=== PATIENT | male | born 1960 | race Caucasian/White ===

== ENCOUNTER 2016-11-11 17:37 | Emergency (ER) | payer OTHER ==
[2016-11-11 17:57] VITALS: BP 113/82
--- NOTE | 2016-11-11 23:18 | UC ---
[place] Michael, scribed for Kay Hong MD on 11/11/16 at 1844 . Minor Trauma HPI - HPI Summary HPI Summary: 55 y/o male comes to Urgent Care after a fall a 12 foot ladder today at 1600. The pt reports he was spraying bleach on a patch of mold in the bathroom when he felt lightheaded and fell of the ladder. He states hitting his head two times. The pt does not remember falling off the ladder and recalls laying on the floor in pain. The pain is worse at the medial clavicle, and it radiates to his left shoulder, neck, head, sternum, and LUE. He also describes the head pain as his head spinning. The pt denies that the pain is aggravated with deep breaths and denies abd pain. - History of Current Complaint Chief Complaint: UCTrauma Stated Complaint: HEAD & SHOULDER INJURIES FROM FALL Time Seen by Provider: 11/11/16 18:09 Hx Obtained From: Patient, Medical Records Onset/Duration: Sudden Onset, Lasting Hours, Still Present Onset Of Pain: Immediate Severity Initially: Moderate Severity Currently: Moderate Pain Intensity: 8 Pain Scale Used: 0-10 Numeric Mechanism Of Injury: Fall From Height Of: - 12 ft Aggravating Factor(s): Nothing Alleviating Factor(s): Nothing Associated Signs And Symptoms: Positive: Loss Of Consciousness, Other: - left shoulder, neck, head, sternum, medial clavicle, and LUE pain. - Allergies/Home Medications Allergies/Adverse Reactions: Allergies Allergy/AdvReac Type Severity Reaction Status Date / Time No Known Allergies Allergy Verified 11/11/16 17:57 PMH/Surg Hx/FS Hx/Imm Hx - Additional Past Medical History Additional PMH: Hx broken clavicle several years ago Previously Healthy: Yes - pt denies significant PMHx - Surgical History Surgical History: Yes Surgery Procedure, Year, and Place: Bilateral ankle loose body removal surgeries , HERNIA REPAIR 2011 - Family History Known Family History: Negative: Blood Disorder - Social History Occupation: Retired Lives: With Family Alcohol Use: None Substance Use Type: None Smoking Status (MU): Never Smoked Tobacco Review of Systems Constitutional: Negative Skin: Negative Eyes: Negative ENT: Negative Respiratory: Negative Cardiovascular: Negative Gastrointestinal: Negative Genitourinary: Negative Motor: Negative Neurovascular: Negative Musculoskeletal: Other: - left shoulder, neck, head, sternum, clavicle, and LUE pain Neurological: Negative Psychological: Negative All Other Systems Reviewed And Are Negative: Yes Physical Exam Triage Information Reviewed: Yes Appearance: Well-Nourished, Other: - pain with movement and examination Vital Signs: Initial Vital Signs Temp 97.9 F 11/11/16 17:45 Pulse 89 11/11/16 17:45 Resp 18 11/11/16 17:45 BP 113/82 11/11/16 17:45 Pulse Ox 98 11/11/16 17:45 Vital Signs Reviewed: Yes Eye Exam: Normal ENT: Positive: Pharynx normal, TM dull, Other: - c/o headache, better now. Neck exam: Other Neck: Positive: Other: - tender left lateral neck, radiating up from left shoulder Respiratory Exam: Other - tender and bruising mid and left chest wall. Equal chest wall insp with deep breath. No crepitus. Trachea midline. Respiratory: Positive: Lungs clear, Normal breath sounds, No respiratory distress, No accessory muscle use Cardiovascular Exam: Normal Cardiovascular: Positive: RRR, No Murmur, Pulses Normal - equal, Brisk Capillary Refill Abdominal Exam: Normal Abdomen Description: Positive: No Organomegaly, Soft, Other: - "my left side hurts" No direct abd tender, but some left flank and chest wall pain Musculoskeletal Exam: Other - Tender L middle clavicle and upper left shoulder. + ax n sens (Bilat) LT. Straightens elbow. R/U 2+, good hand grasp. Distal NVI. No hip or pelvis tender. Able to walk around ok, slowly (pacing) Neurological Exam: Normal - CN-1-12 grossly intact. Distal NVI Partial recollection of event. O x ppt. Psychological Exam: Normal Skin Exam: Normal - except eccymosis scattered Minor Trauma Course/Dx - Course Course Of Treatment: Multiple pain c/o, part left side, s/p significant fall off ladder this afternoon. Transfer to the ED for further evaluation and management. Trauma may be indicated, but pt agrees to local ED. Indeed, while offered and encouraged EMS, he politely but firmly declines. AMA signed, he will go to ED pov. Declines neck collar or sling. Discussed patient care and transfer with Dr. Vega at 1900. The patient is refusing an ambulance and was made aware of potention risks in driving to the ED. - Differential Dx/Diagnosis Provider Diagnoses: Trauma s/p fall off ladder Discharge - Discharge Plan Condition: Stable Disposition: AGAINST MEDICAL ADVICE Referrals: Liz Bui MD [Primary Care Provider] - The documentation as recorded by the Dorothea contreras Michael accurately reflects the service I personally performed and the decisions made by me, Kay Hong MD.
== END 2016-11-11 19:07 | disposition left against medical advice (07) ==
LOC: UCEAST 17:37
DX: M54.2 Cervicalgia (principal); M25.512 Pain in left shoulder
CPT/HCPCS: 99212; G0463

== ENCOUNTER → 2016-11-11 19:25 | Emergency (ER) | payer OTHER ==
[~2016-11-11 19:25] MED LIST: Iohexol 300* (CONTRAST) 10 ML SDV IV ONE; NS 0.9% 1000 ML* 1,000 ML IV ONE
[2016-11-11 20:10] LABS: Hematocrit 47 % (42-52); Hemoglobin 15.6 g/dl (14.0-18.0); Mean Corpuscular HGB Conc 33 g/dl (31-36); Mean Corpuscular Hemoglobin 31 pg (27-31); Mean Corpuscular Volume 93 fL (80-94); Mean Platelet Volume 8 um3 (7.4-10.4); Red Blood Count 5.11 10^6/ul (4.0-5.4); Red Cell Distribution Width 13 % (10.5-15); White Blood Count 12.5 10^3/ul (3.5-10.8)
[2016-11-11 20:25] LABS: Albumin 4.7 g/dL (3.2-5.2); BUN/Creatinine Ratio 13.9 (8-20); Calcium 9.9 mg/dL (8.6-10.3); EGFR African American 84.9 (>60); Globulin 3.8 g/dL (2-4); Total Bilirubin 0.5 mg/dL (0.2-1.0); Total Protein 8.5 g/dL (6.4-8.9)
--- NOTE | 2016-11-11 20:54 | RAD ---
HISTORY: Head trauma COMPARISONS: None TECHNIQUE: Multiple contiguous axial CT scans were obtained of the head without intravenous contrast. FINDINGS: The study is limited by patient motion artifact. HEMORRHAGE/INFARCT: There is no hemorrhage or acute infarct. MASSES/SHIFT: There is no mass or shift. EXTRA-AXIAL SPACES: There are no extra-axial fluid collections. SULCI AND VENTRICLES: The sulci and ventricles are normal in size and position for the patient's stated age. CEREBRUM: There are no focal parenchymal abnormalities. BRAINSTEM: There are no focal parenchymal abnormalities. CEREBELLUM: There are no focal parenchymal abnormalities. VESSELS: The vessels are grossly normal. PARANASAL SINUSES: The paranasal sinuses are clear. ORBITS: The orbits are unremarkable. BONES AND SOFT TISSUE: No bone or soft tissue abnormalities are noted. OTHER: None IMPRESSION: NO ACUTE INTRACRANIAL PATHOLOGY.
--- NOTE | 2016-11-11 20:59 | RAD ---
HISTORY: Trauma, fall, head injury COMPARISONS: None TECHNIQUE: Multiple contiguous axial CT scans were obtained of the cervical spine without intravenous contrast, with coronal and sagittal multiplanar reformations. FINDINGS: BRAIN: The visualized brain is unremarkable CENTRAL CANAL: Evaluation of the central canal is limited on CT technique, however there is no obvious canalicular mass or epidural hemorrhage. ALIGNMENT: There is straightening of the normal cervical lordosis. VERTEBRAL BODIES: There is no displaced fracture. There is mild multilevel anterolateral marginal osteophyte formation. There is partial ossification of the tectorial membrane. JOINTS: There is osteoarthritis of the atlantoaxial articulation. There is mild uncovertebral and facet hypertrophic change MUSCULATURE: Unremarkable INTERVERTEBRAL DISCS: There is diffuse loss of intervertebral disc height. AXIAL IMAGES: There is a broad-based disc osteophyte complex at C5-C6. There is no significant osseous neural foraminal narrowing or central canal stenosis. SOFT TISSUES: The visualized soft tissues of the neck are unremarkable. The prevertebral fat stripe is preserved. OTHER: None. IMPRESSION: 1. DEGENERATIVE DISC DISEASE AND OSTEOARTHRITIS. 2. NO ACUTE OSSEOUS INJURY TO THE CERVICAL SPINE
--- NOTE | 2016-11-11 21:05 | RAD ---
HISTORY: Trauma, fall, head injury, left shoulder injury COMPARISONS: CT of the chest dated August 07, 2009 TECHNIQUE: Multiple contiguous axial CT scans were obtained of the chest, abdomen, and pelvis after the administration of intravenous contrast. Coronal and sagittal multiplanar reformations are submitted for review.. Oral contrast was not administered. Delayed images were obtained through the abdomen and pelvis. FINDINGS: CHEST NECK AND THYROID: The lower neck and thyroid are unremarkable. CHEST WALL: There is no lower cervical, axillary, or supraclavicular lymphadenopathy by size criteria. HEART AND PERICARDIUM: The heart is unremarkable. AORTA AND PULMONARY VASCULATURE: The aorta and pulmonary vasculature are normal. MEDIASTINUM: There is no mediastinal lymphadenopathy by size criteria. RUDY: There is no hilar lymphadenopathy by size criteria. AIRWAY AND ESOPHAGUS: The airway is unremarkable, without endobronchial filling defect. The esophagus is grossly normal. LUNG PARENCHYMA: The lungs are clear. PLEURA: No pleural abnormalities are noted. BONES AND SOFT TISSUES: There is remote posttraumatic change to the left clavicle. Mild degenerative changes are noted ABDOMEN/PELVIS: LIVER: The liver is diffusely low in attenuation compared to the spleen. There are no focal hepatic parenchymal masses. BILE DUCTS: There is no intrahepatic or extrahepatic biliary dilatation. GALLBLADDER: The gallbladder is normal, without pericholecystic inflammatory change. PANCREAS: The pancreas is normal, without mass or ductal dilatation. SPLEEN: Normal in size and appearance. UPPER GI TRACT: Evaluation of the gastrointestinal tract is limited by incomplete gastric distention. The upper GI tract is unremarkable. SMALL BOWEL \T\ MESENTERY: The small bowel is normal in contour, course, and caliber. There is no obstruction or dilatation. COLON: The colon is normal in contour, course, caliber. There is no pericolonic inflammatory change. There is a tubular, vermiform, hollow viscus that is blind ending, and originates from the cecum, consistent with a normal appendix. There is no periappendiceal inflammatory change. This is best seen on axial images 57 through 60 ADRENALS: Normal bilaterally. KIDNEYS: The kidneys are normal in shape, size, contour, and axis. There is no hydronephrosis or nephrolithiasis. BLADDER: The bladder is smooth in contour. PELVIC ORGANS: The prostate is diffusely enlarged. The seminal vesicles are symmetric. AORTA: The aorta is normal. IVC: Unremarkable LYMPH NODES: There is no lymphadenopathy by size criteria. ABDOMINAL WALL: There is no evidence for abdominal wall hernia. BONES: Mild degenerative changes are noted OTHER: There is no active arterial extravasation IMPRESSION: 1. NO ACUTE PATHOLOGY OF THE CHEST. 2. FATTY INFILTRATION OF LIVER. 3. ENLARGED PROSTATE. 4. NO ACUTE PATHOLOGY OF THE VISUALIZED ABDOMEN OR PELVIS
[2016-11-11 21:34] VITALS: BP 111/70
--- NOTE | 2016-11-11 22:04 | RAD ---
HISTORY: Left shoulder pain, trauma COMPARISONS: CT dated November 11, 2016 VIEWS: 4, Frontal internal rotation, external rotation, outlet, and axillary views of the left shoulder FINDINGS: BONE DENSITY: Normal. BONES: There is remote posttraumatic deformity to the left clavicle. There is no acute displaced fracture. JOINTS: There is no arthropathy. ALIGNMENT: There is no dislocation. SOFT TISSUES: Unremarkable. OTHER FINDINGS: None. IMPRESSION: EVIDENCE OF REMOTE LEFT CLAVICLE TRAUMA. NO ACUTE OSSEOUS INJURY. IF SYMPTOMS PERSIST, RECOMMEND REPEAT IMAGING.
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
== END | disposition home or self-care (01) ==
LOC: ED 19:25
DX: M25.512 Pain in left shoulder (principal); S16.1XXA Strain of muscle, fascia and tendon at neck level, initial encounter; W11.XXXA Fall on and from ladder, initial encounter; Y93.9 Activity, unspecified; Y92.9 Unspecified place or not applicable; M47.812 Spondylosis without myelopathy or radiculopathy, cervical region; M50.30 Other cervical disc degeneration, unspecified cervical region; N40.0 Benign prostatic hyperplasia without lower urinary tract symptoms; F32.9 Major depressive disorder, single episode, unspecified; Z87.81 Personal history of (healed) traumatic fracture
CPT/HCPCS: 36415; 70450; 71260; 72125; 74177; 80053; 83605; 84484; 85025; 85610; 96374; 99282; Q9967

== ENCOUNTER 2019-10-15 15:18 | Emergency (ER) | payer OTHER ==
[2019-10-15 15:42] VITALS: BP 110/65
[2019-10-15] MEDS ORDERED: Lidocaine 1% MPF ** 5 ML VIAL INJ ONE (15:48)
[2019-10-15] MEDS ORDERED: Tetan/Diph/Pertus SYR(Tdap)* 0.5 ML SYR(BOOSTRIX) use SYR contains LATEX IM ONE (16:10)
--- NOTE | 2019-10-15 16:12 | UC ---
Laceration HPI - HPI Summary HPI Summary: 58-year-old male presents with laceration of the left knee. States just prior to arrival he was cutting brush with a chainsaw when the saw kicked back and struck him in the left anterior knee. He was not wearing leather chaps sustained the laceration through his jeans. Bleeding was controlled with direct pressure prior to arrival. Last tetanus unknown. Denies joint pain, swelling, or decreased ROM. - History Of Current Complaint Chief Complaint: UCLaceration Stated Complaint: KNEE LAC Time Seen by Provider: 10/15/19 15:22 Hx Obtained From: Patient Pain Intensity: 6 - Allergies/Home Medications Allergies/Adverse Reactions: Allergies Allergy/AdvReac Type Severity Reaction Status Date / Time No Known Allergies Allergy Verified 10/15/19 15:42 Home Medications: Home Medications Albuterol Sulfate [Albuterol Sulfate Hfa] 2 puff INH Q4H PRN 10/15/19 [History Confirmed 10/15/19] PMH/Surg Hx/FS Hx/Imm Hx Respiratory History: Asthma - Surgical History Surgical History: Yes Surgery Procedure, Year, and Place: Bilateral ankle loose body removal surgeries , HERNIA REPAIR 2011 - Family History Known Family History: Positive: Hypertension Negative: Cardiac Disease, Diabetes - Social History Occupation: Retired Lives: Alone Alcohol Use: None Substance Use Type: None Smoking Status (MU): Never Smoked Tobacco Review of Systems All Other Systems Reviewed And Are Negative: Yes Constitutional: Positive: Negative Skin: Positive: Other - See HPI Respiratory: Positive: Negative Cardiovascular: Positive: Negative Gastrointestinal: Positive: Negative Genitourinary: Positive: Negative Musculoskeletal: Negative: Arthralgia, Decreased ROM Neurological/Mental Status: Positive: Negative Is Patient Immunocompromised?: No Physical Exam - Summary Physical Exam Summary: GENERAL APPEARANCE: Alert and cooperative obese adult male who appears to be in no acute distress. CARDIAC: Normal S1 and S2. No S3, S4 or murmurs. Rhythm is regular. There is no peripheral edema, cyanosis or pallor. Extremities are warm and well perfused. Capillary refill is less than 2 seconds. Peripheral pulses intact. LUNGS: Clear to auscultation without rales, rhonchi, wheezing or diminished breath sounds. ABDOMEN: Positive bowel sounds. Soft, nondistended, nontender. No guarding or rebound. No masses or hepatosplenomegally. MUSKULOSKELETAL: ROM intact to all extremities. No joint erythema or tenderness. Normal muscular development. Normal gait. EXTREMITIES: Superficial linear laceration approximately 1 cm in length with intact flap of skin to the anterior left knee. There are 2 small linear abrasions medial to the laceration. Bleeding controlled. SKIN: Skin normal color, texture and turgor. Triage Information Reviewed: Yes Vital Signs: Initial Vital Signs Temp 98.8 F 10/15/19 15: Pulse 89 10/15/19 15: Resp 20 10/15/19 15:22 BP 110/65 10/15/19 15:22 Pulse Ox 96 10/15/19 15:22 Vital Signs Reviewed: Yes Procedures - Procedure Summary Procedure Summary: Procedure note: Laceration repair left knee Informed consent was obtained before procedure started and the appropriate timeout was taken. The wound was copiously irrigated prior to wound closure by the RN. The area was prepped with Betadine. Local anesthesia was achieved using 1 ml of lidocaine 1% without epinephrine. A small linear flap of skin was sharply excised to all the wound margins to be brought into good alignment. 3 interrupted sutures were placed using 4-0 Ethilon. Total length of wound after repair was 1.2 cm. Estimated blood loss was Minimal. A dressing was applied to the area by the RM. Anticipatory guidance, as well as standard post-procedure care was discussed with patient. Return precautions are given. The patient tolerated the procedure well without complications. Patient is to follow up in 14 days for suture removal and evaluation of the laceration. Laceration Course/Dx - Course/Dx Course Of Treatment: 58-year-old male presents with laceration of the left knee. States just prior to arrival he was cutting brush with a chainsaw when the saw kicked back and struck him in the left anterior knee. He was not wearing leather chaps sustained the laceration through his jeans. Bleeding was controlled with direct pressure prior to arrival. Last tetanus unknown. Denies joint pain, swelling, or decreased ROM. Afebrile. Vital signs stable. Patient had a superficial linear laceration approximately 1 cm in length with intact flap of skin to the anterior left knee with 2 small linear abrasions medial to the laceration and bleeding controlled. There was no joint space violation. The wound was copiously irrigated by the RN prior to wound repair. The laceration was closed with 3 interrupted sutures using 4-0 Ethilon. Patient's tetanus was updated. He is to follow-up here or with his primary care provider in 14 days to have the sutures removed. Anticipatory guidance, wound care, and warning symptoms are reviewed with patient. Verbalizes understanding and agrees with plan of care. - Differential Dx - Laceration/Wound Differental Diagnoses: Joint Space Violation, Laceration - Diagnosis Provider Diagnosis: Laceration of left knee Discharge ED - Sign-Out/Discharge Documenting (check all that apply): Patient Departure All imaging exams completed and their final reports reviewed: No Studies - Discharge Plan Condition: Stable Disposition: HOME Patient Education Materials: Care For Your Stitches (ED), Laceration (ED) Referrals: Liz Bui MD [Primary Care Provider] - Additional Instructions: Leave the dressing that was applied in the clinic in place until tomorrow. Be sure to keep it clean and dry. Starting tomorrow, you may remove the dressing and shower as normal. Do not submerge the knee under water to prevent infection. Clean the wound with a mild soap and water at least once a day. Apply some antibiotic ointment and cover with a bandage. This should be changed at least once a day or any time the dressing becomes wet or soiled. Use acetaminophen (Tylenol) or ibuprofen (Advil, Motrin) according to directions as needed for pain. Sutures will need to be removed in 14 days. You may return here or with your primary care provider to have this done. Your tetanus was updated today. Be sure to notify your primary care provider so they can update their records. Watch for signs of infection including fever greater than 100.5 F, severe pain not managed with pain medication, redness that spreads, swelling of the hand/ fingers, or pus draining from the wound. Seek immediate medical attention should any of these occur. - Billing Disposition and Condition Condition: STABLE Disposition: Home - Attestation Statements Provider Attestation: This patient was not seen by me. I was available for consult. Chart reviewed. RANJIT
== END 2019-10-15 16:43 | disposition home or self-care (01) ==
LOC: UCEAST 15:18
DX: S81.012A Laceration without foreign body, left knee, initial encounter (principal); W29.3XXA Contact with powered garden and outdoor hand tools and machinery, initial encounter; Y93.89 Activity, other specified; Y92.9 Unspecified place or not applicable; Z23 Encounter for immunization; J45.909 Unspecified asthma, uncomplicated
CPT/HCPCS: 12001; 90715; 96372; 99211; G0463

== ENCOUNTER 2019-10-29 15:16 | Emergency (ER) | payer OTHER ==
--- NOTE | 2019-10-29 15:39 | UC ---
UC General HPI - HPI Summary HPI Summary: 58-year-old male comes in to have sutures removed. On October 15, 2019 he cut his left knee with a chain saw and sustained a 1 cm laceration that was sutured here in clinic with a total number of 3 sutures. Patient's been healing well no signs of infection no loss of range of motion or decreased sensation or strength. - History of Current Complaint Stated Complaint: SUTURE REMOVAL Time Seen by Provider: 10/29/19 15:37 - Allergy/Home Medications Allergies/Adverse Reactions: Allergies Allergy/AdvReac Type Severity Reaction Status Date / Time No Known Allergies Allergy Verified 10/29/19 15:41 Home Medications: Home Medications Albuterol Sulfate [Albuterol Sulfate Hfa] 2 puff INH Q4H PRN 10/15/19 [History Confirmed 10/29/19] Multivitamin [Multivitamins] 1 tab PO DAILY 10/29/19 [History Confirmed 10/29/19 ] PMH/Surg Hx/FS Hx/Imm Hx Previously Healthy: Yes Respiratory History: Asthma - Surgical History Surgical History: Yes Surgery Procedure, Year, and Place: Bilateral ankle loose body removal surgeries , HERNIA REPAIR 2011 - Family History Known Family History: Positive: Hypertension Negative: Cardiac Disease, Diabetes - Social History Alcohol Use: None Substance Use Type: None Smoking Status (MU): Never Smoked Tobacco Review of Systems All Other Systems Reviewed And Are Negative: Yes Constitutional: Positive: Negative Skin: Positive: Other - SEE HPI Eyes: Positive: Negative ENT: Positive: Negative Respiratory: Positive: Negative Motor: Positive: Negative Neurovascular: Positive: Negative Musculoskeletal: Positive: Negative Neurological/Mental Status: Positive: Negative Psychological: Positive: Negative Is Patient Immunocompromised?: No Physical Exam Triage Information Reviewed: Yes Appearance: Well-Appearing, No Pain Distress, Well-Nourished Vital Signs Reviewed: Yes Eye Exam: Normal Eyes: Positive: Conjunctiva Clear Neck: Positive: Supple Respiratory: Positive: No respiratory distress Musculoskeletal: Positive: Strength Intact, ROM Intact Psychological: Positive: Age Appropriate Behavior Skin: Positive: Other - Healing 1 cm laceration over the patella the left knee with a scab and 3 interrupted sutures. I removed the 3 interrupted sutures. Course/Dx - Diagnoses Provider Diagnosis: Encounter for removal of sutures Discharge ED - Sign-Out/Discharge Documenting (check all that apply): Patient Departure All imaging exams completed and their final reports reviewed: No Studies - Discharge Plan Condition: Stable Disposition: HOME Patient Education Materials: Stitches Removal (ED) Referrals: Liz Bui MD [Primary Care Provider] - Additional Instructions: FOLLOW UP WITH YOUR DOCTOR IF NOT COMPLETELY IMPROVED. GET REEVALUATED IF NOT IMPROVED OR WORSE; SIGNS OF INFECTION OR ANY QUESTIONS OR CONCERNS. - Billing Disposition and Condition Condition: STABLE Disposition: Home
[2019-10-29 15:47] VITALS: BP 144/86
== END 2019-10-29 16:05 | disposition home or self-care (01) ==
LOC: UCEAST 15:16
DX: S81.012D Laceration without foreign body, left knee, subsequent encounter (principal); W29.3XXD Contact with powered garden and outdoor hand tools and machinery, subsequent encounter; J45.909 Unspecified asthma, uncomplicated